=== PATIENT | male | born 1940 | race Caucasian/White ===

== ENCOUNTER → 2024-07-11 | Outpatient (CLI) | payer MEDICARE ==
[2024-07-11 18:37] LABS: Basophils # (A) 0.07 X 10*3/uL (0.00-0.10); Basophils % (A) 0.9 %; Eosinophils # (A) 0.07 X 10*3/uL (0.04-0.35); Eosinophils % (A) 0.9 %; HCT 45.5 % (39.6-50.0); Lymphocytes # (A) 1.53 X 10*3/uL (0.90-5.00); Lymphocytes % (A) 19.5 %; MCH 34.2 pg (27.0-32.0); MCV 103.9 FL (80.0-97.0); Monocytes # (A) 1.38 X 10*3/uL (0.20-1.00); Monocytes % (A) 17.6 %; NRBC Per 100 WBC 0 X 10*3/uL (0.00-0.01); Neutrophils # (A) 4.74 X 10*3/uL (1.80-7.70); Neutrophils % (A) 60.6 %; Platelet Count 191 X 10*3/uL (140-440); RBC 4.38 X 10*6/uL (4.40-5.60); RDW 12.9 % (11.5-14.5); WBC 7.83 X 10*3/uL (4.50-10.00)
[2024-07-11 19:39] LABS: Protein, Total 7.3 g/dL (6.2-8.2)
[2024-07-11 21:47] LABS: ALT 22 U/L (10-49); AST 25 U/L (14-35); Albumin 4.6 g/dL (3.8-4.9); Albumin/Globulin Ratio 1.64 Ratio (1.60-3.17); Alkaline Phosphatase 69 U/L (41-126); BUN/Creat Ratio 17.75 Ratio (12.00-20.00); Blood Urea Nitrogen 21.3 mg/dL (9.0-27.0); Calcium 9.8 mg/dL (8.7-10.3); Chloride 106 mmol/L (96-109); Globulin 2.8 g/dL (1.6-3.3); Glucose 97 mg/dL (70-110); Potassium 4.5 mmol/L (3.5-5.5); Sodium 142 mmol/L (135-145); Total Bilirubin 0.9 mg/dL (0.3-1.2); Total Protein 7.4 g/dL (6.2-8.2)
== END | disposition home or self-care (01) ==
LOC: LABWHC1 13:12
PROVIDERS: ATTEND Internal Medicine Hematology & Oncology
DX: I10 Essential (primary) hypertension (principal); E03.9 Hypothyroidism, unspecified; E78.5 Hyperlipidemia, unspecified; D75.89 Other specified diseases of blood and blood-forming organs
CPT/HCPCS: 36415; 80053; 82607; 82746; 83010; 83883; 83921; 84165; 85025; 86334

== ENCOUNTER → 2024-08-25 | Outpatient (CLI) | payer MEDICARE ==
--- NOTE | 2024-08-25 14:06 | XR ---
EXAMINATION TYPE: XR bone survey complete DATE OF EXAM: 08/25/2024 COMPARISON: NONE CLINICAL INDICATION: Male, 84 years old with history of D47.2 MONOCLONAL GAMMOPATHY; Bony calvarium : 2 views of the bony calvarium demonstrate. No sclerotic or lytic osseous lesions id entified. Spine: Two views of the cervical, thoracic and lumbar spines are submitted. No sclerotic or lytic os seous lesions identified. Multilevel degenerative changes of the visualized spine. Mild S-shaped scol iotic curvature of the lower thoracolumbar spine. PELVIS: Single view of the pelvis demonstrates. No sclerotic or lytic osseous lesions identified. UPPER EXTREMITIES: Two views of the upper extremities. No sclerotic or lytic osseous lesions identifi ed. Lateral hip arthroplasty changes. LOWER EXTREMITIES: 2 views of the lower extremities. No sclerotic or lytic osseous lesions identifie d. Other: Median sternotomy wires. Cardiomegaly with post-CABG changes. Cholecystectomy clips in right u pper quadrant. Atherosclerotic calcification of the aorta. Postsurgical clips identified within the b ilateral inguinal regions. IMPRESSION: No sclerotic or lytic osseous lesions identified. [facility], , 08/25/2024 2:04 PM
== END | disposition home or self-care (01) ==
LOC: RADXRMAIN 12:58
PROVIDERS: ATTEND Internal Medicine Hematology & Oncology
DX: D47.2 Monoclonal gammopathy (principal); D75.89 Other specified diseases of blood and blood-forming organs; E03.9 Hypothyroidism, unspecified; I10 Essential (primary) hypertension; I51.7 Cardiomegaly; Z95.1 Presence of aortocoronary bypass graft; I70.0 Atherosclerosis of aorta
CPT/HCPCS: 77075

== ENCOUNTER 2024-12-20 23:24 | Emergency (ER) | payer MEDICARE ==
--- NOTE | 2024-12-21 00:02 | XR ---
EXAMINATION TYPE: XR chest 2V DATE OF EXAM: 12/20/2024 11:51 PM COMPARISON: Chest radiographs from 12/15/2014 TECHNIQUE: XR chest 2V Frontal and lateral views of the chest. CLINICAL INDICATION:Male, 84 years old with history of Cough; FINDINGS: Lungs/Pleura: There is no evidence of pleural effusion, focal consolidation, or pneumothorax. Pulmonary vascularity: Unremarkable. Heart/mediastinum: Cardiomediastinal silhouette is unremarkable. Atherosclerotic calcifications are seen in the aorta. Musculoskeletal: No acute osseous pathology. Midline sternotomy wires are noted and stable. IMPRESSION: No acute cardiopulmonary disease/process. [facility], , 12/21/2024 12:00 AM
--- NOTE | 2024-12-21 00:21 | ED ---
URI HPI - General Chief Complaint: Upper Respiratory Infection Stated Complaint: fever Time Seen by Provider: 12/20/24 23:40 Source: patient, RN notes reviewed Mode of arrival: ambulatory Limitations: no limitations - History of Present Illness Initial Comments: This is an 84-year-old male with history of hypertension and thyroid disorder presenting for sick symptoms x 1 day. Patient endorses fever (100 F), chills, body aches, fatigue and dry cough. Denies [id number]-[id number] medication use. Denies nasal congestion, hemoptysis, dyspnea, chest pain, abdominal pain, N/V/D, urinary symptoms. MD Complaint: fever, cough Onset/Timin -: days(s) Context: sick contacts Associated Symptoms: fever, chills, myalgias, cough Treatments Prior to Arrival: none - Related Data Previous Rx's Medication Instructions Recorded predniSONE 50 mg PO DAILY #5 tab 12/21/24 Allergies Allergy/AdvReac Type Severity Reaction Status Date / Time codeine AdvReac Unknown Verified 12/20/24 23:32 Review of Systems ROS Statement: Those systems with pertinent positive or pertinent negative responses have been documented in the HPI. ROS Other: All systems not noted in ROS Statement are negative. Past Medical History Past Medical History: Hypertension, Thyroid Disorder History of Any Multi-Drug Resistant Organisms: None Reported Past Surgical History: No Surgical Hx Reported Past Psychological History: No Psychological Hx Reported Smoking Status: Never smoker Past Alcohol Use History: None Reported Past Drug Use History: None Reported General Exam Limitations: no limitations General appearance: alert, in no apparent distress Head exam: Present: atraumatic, normocephalic, normal inspection Eye exam: Present: normal appearance, PERRL, EOMI. Absent: scleral icterus, conjunctival injection, periorbital swelling ENT exam: Present: normal oropharynx, mucous membranes dry, TM's normal bilaterally Neck exam: Present: normal inspection. Absent: tenderness, meningismus, lymphadenopathy Respiratory exam: Present: decreased breath sounds. Absent: respiratory distress, wheezes, rales, rhonchi, stridor, accessory muscle use, prolonged expiratory Cardiovascular Exam: Present: regular rate, normal rhythm, normal heart sounds. Absent: systolic murmur, diastolic murmur, rubs, gallop, clicks GI/Abdominal exam: Present: soft, normal bowel sounds. Absent: distended, tenderness, guarding, rebound, rigid Extremities exam: Present: normal inspection, full ROM, normal capillary refill. Absent: tenderness, pedal edema, joint swelling, calf tenderness Back exam: Present: normal inspection Neurological exam: Present: alert, oriented X3, CN II-XII intact Psychiatric exam: Present: normal affect, normal mood Skin exam: Present: warm, dry, intact, normal color. Absent: rash Course Vital Signs 12/20/24 12/21/24 12/21/24 23:29 01:00 01:05 Temperature 98.6 F 98.3 F Pulse Rate 99 82 Respiratory 18 20 16 Rate Blood Pressure 118/77 131/72 O2 Sat by Pulse 97 96 Oximetry 12/21/24 01:57 Temperature 97.9 F Pulse Rate 82 Respiratory 16 Rate Blood Pressure 112/74 O2 Sat by Pulse 96 Oximetry Medical Decision Making - Medical Decision Making Was pt. sent in by a medical professional or institution (, PA, HISTOLOGICAL ILLUSTRATOR, urgent care, hospital, or fdc...) When possible be specific @ -No Did you speak to anyone other than the patient for history (EMS, parent, family, police, friend...)? What history was obtained from this source @ -No Did you review nursing and triage notes (agree or disagree)? Why? @ -I reviewed and agree with nursing and triage notes Were old charts reviewed (outside hosp., previous admission, EMS record, old EKG, old radiological studies, urgent care reports/EKG's, fdc records)? Report findings @ -No old charts were reviewed Differential Diagnosis (chest pain, altered mental status, abdominal pain women, abdominal pain men, vaginal bleeding, weakness, fever, dyspnea, syncope, headache, dizziness, GI bleed, back pain, seizure, CVA, palpatations, mental health, musculoskeletal)? @ -Differential Fever: Pneumonia, viral URI, endocarditis, myocarditis, pericarditis, otitis, sinusitis, peritonsillar Abscess, retropharyngeal Abscess, epiglottitis, peritonitis, appendicitis, Rox cystitis, diverticulitis, hepatitis, colitis, UTI, PID, TOA, pyelonephritis, prostatitis, epididymitis, meningitis, encephalitis, pulmonary embolism, CVA, thyroid storm, pancreatitis, adrenal crisis, cavernous sinus thrombosis, this is not meant to be an all-inclusive list. EKG interpreted by me (3pts min.). @ -Not done X-rays interpreted by me (1pt min.). @ -CXR shows no acute cardiopulmonary process CT interpreted by me (1pt min.). @ -None done U/S interpreted by me (1pt. min.). @ -None done What testing was considered but not performed or refused? (CT, X-rays, U/S, labs)? Why? @ -None What meds were considered but not given or refused? Why? @ -None Did you discuss the management of the patient with other professionals (professionals i.e. DrAriadne, PA, HISTOLOGICAL ILLUSTRATOR, lab, RT, psych nurse, social media strategist, head insulation board saw operator, teacher, army officer, outsole caser)? Give summary @ -No Was smoking cessation discussed for >3mins.? @ -No Was critical care preformed (if so, how long)? @ -No Were there social determinants of health that impacted care today? How? (Homelessness, low income, unemployed, alcoholism, drug addiction, transportation, low edu. Level, literacy, decrease access to med. care, half-way, rehab)? @ -No Was there de-escalation of care discussed even if they declined (Discuss DNR or withdrawal of care, Hospice)? DNR status @ -No What co-morbidities impacted this encounter? (DM, HTN, Smoking, COPD, CAD, Cancer, CVA, ARF, Chemo, Hep., AIDS, mental health diagnosis, sleep apnea, morbid obesity)? @ -None Was patient admitted / discharged? Hospital course, mention meds given and route, prescriptions, significant lab abnormalities, going to OR and other pertinent info. @ -Cepheid test positive for COVID-19. CXR shows no acute cardiopulmonary process. Patient provided IM Decadron for diminished lung sounds. Vital signs stable with temperature 97.9 F, pulse 82, respirations 16, BP 112/74 and SpO2 96% room air. Prednisone sent to patient's pharmacy. Advised alternate Tylenol/Motrin every 4 hours for fever/pain. Honey, warm fluids and humidifier for cough. Advise return to ER if experiencing worsening fever or dyspnea. Follow-up with PCP in the next 24-[address] patient with Dr. Hinojosa. Undiagnosed new problem with uncertain prognosis? @ -No Drug Therapy requiring intensive monitoring for toxicity (Heparin, Nitro, Insulin, Cardizem)? @ -No Were any procedures done? @ -No Diagnosis/symptom? @ -COVID-19 Acute, or Chronic, or Acute on Chronic? @ -Acute Uncomplicated (without systemic symptoms) or Complicated (systemic symptoms)? @ -Complicated Side effects of treatment? @ -No Exacerbation, Progression, or Severe Exacerbation? @ -No Poses a threat to life or bodily function? How? (Chest pain, [place], [place], pneumonia, PE, COPD, DKA, ARF, appy, cholecystitis, CVA, Diverticulitis, Homicidal, Suicidal, threat to staff... and all critical care pts) @ -No - Lab Data Lab Results 12/20/24 Range/Units 23:35 Influenza Type A (PCR) Not Detected (Not Detectd) Influenza Type B (PCR) Not Detected (Not Detectd) RSV (PCR) Not Detected (Not Detectd) SARS-CoV-2 (PCR) Detected A (Not Detectd) Disposition Clinical Impression: COVID-19 Disposition: HOME SELF-CARE Condition: Fair Instructions (If sedation given, give patient instructions): COVID-19 (Coronavirus Disease 2019) (ED) Additional Instructions: Alternate Tylenol/Motrin every 4 hours for fever/pain. Follow-up with primary care physician for any ongoing symptoms return to ER if experiencing worsening fever, chills, cough, blood in sputum, difficulty breathing, chest pain. Prescriptions: predniSONE 50 mg PO DAILY #5 tab Is patient prescribed a controlled substance at d/c from ED?: No Referrals: Annette Mclaughlin DO [Primary Care Provider] - 1-2 days Time of Disposition: 01:41
[2024-12-21 00:33] LABS: Influenza A Not Detected (Not Detectd); Influenza B Not Detected (Not Detectd); RSV Not Detected (Not Detectd)
[2024-12-21] MEDS: DEXAMETHASONE SOD PHOSPHATE 4 MG/ML 1 ML VIAL IM STA (00:59)
[2024-12-21 01:13] VITALS: PULSE 82; RESP 16
[2024-12-21 02:14] VITALS: BP 112/74; TEMP 97.9
== END 2024-12-21 01:57 | disposition home or self-care (01) ==
LOC: EC 23:24
DX: U07.1 COVID-19 (principal); Z88.5 Allergy status to narcotic agent
CPT/HCPCS: 87636; 71046; 99284; 96372; J1100